=== PATIENT | female | born 1955 | race Caucasian/White ===

== ENCOUNTER 2025-04-30 09:00 | Outpatient (AMB) | payer MEDICARE, SELFPAY ==
--- NOTE | 2025-04-30 09:01 | A.OFFVIS_ITS ---
Intake Visit Reasons: F/U after injection 03/16/2025 Intake Note: Patient is a 69 year old female in office today for a follow up after right L3 and L4 transforaminal epidural 03/16/25 states that it didnt help much with the l3 and l4 left hip is starting to hurt as well Allergies alendronate sodium (Fosamax) Allergy (Unknown, Verified 04/30/25 09:05) Rash hydromorphone (Dilaudid) Allergy (Unknown, Verified 04/30/25 09:05) nausea and vomiting mold Allergy (Unknown, Uncoded 04/30/25 09:05) Rash sulfa Allergy (Unknown, Uncoded 04/30/25 09:05) Rash HPI Comments Details: History of Present Illness The patient is a 69 year old female presenting for a follow-up visit for chronic lower back pain and lumbar radiculitis. She has received minimally invasive treatments, including interlaminar and transforaminal injections, and is status post right L3 and L4 transforaminal injections on March 16, 2025, which she reports did not provide much help. Her pain is now primarily located on the left side, which she attributes to compensation from other musculoskeletal issues. The patient has a history of a right total hip replacement. She also reports needing a knee replacement, stating it is bone on bone, and has unhealed broken bones in her feet, leading to overcompensation and difficulty walking. Due to her lung illness, she is unable to go to the gym but uses a stationary bicycle at home. Her medication regimen includes long-term cyclobenzaprine and sporadic use of oxycodone for severe pain, which she states she uses rationally. She was recently prescribed baclofen 10 mg and has found some improvement taking it up to four times a day. She has been sober for 36 years and is very cautious with medication, especially opioids, due to a family history of an opioid overdose . The patient has a history of lung disease and wishes to avoid prednisone. She is scheduled for a Mohs procedure on her ear at the end of May and must remain steroid-free until then. She is due for lab work, including a liver function test, in May or June. Pain Description - Location: Chronic lower back pain and lumbar radiculitis, with current pain predominantly on the left side. - Quality: Severe enough to require sporadic use of oxycodone. - Exacerbating Factors: Walking and overcompensation from hip and knee issues. - Relieving Factors: Baclofen has provided some improvement, and using a walker or shopping cart helps for long distances. - Interference with Function: Pain and related issues with her hip, knee, and feet make walking difficult. Results - Procedures: Right L3 and L4 transforaminal injections were performed on March 16, 2025, which provided minimal relief. - Labs: She is due for lab work, including a liver function test, in May or June. [facility] Medical History (Updated 04/30/25 @ 17:15 by Deepak Corley DO) Post laminectomy syndrome Lumbar radiculitis Lumbar spinal stenosis Surgical History (Updated 04/25/25 @ 12:37 by Shahnaz Nicholson MA) History of rectal prolapse (Unknown) History of cataract surgery History of knee replacement H/O: hysterectomy History of cancer surgery History of hip replacement Social History (Updated 04/25/25 @ 12:37 by Shahnaz Nicholson MA) Alcohol intake: current Alcohol intake frequency: does not drink Patient Tobacco Use Status: Never used Tobacco Use of substances other than those prescribed or required for medical reasons: No Current occupational status: retired Review of Systems Narrative Review of Systems - Constitutional: Denies fever or chills. - Gastrointestinal: Denies any change in bowel habits. - Musculoskeletal: Reports chronic lower back pain, left-sided pain, knee pain described as bone on bone, and incompletely healed foot fractures. - Neurological: Reports lumbar radiculitis. - Respiratory: Reports a history of lung illness. - Skin: Reports she is scheduled for a Mohs procedure on her ear. Physical Exam Exam Exam: Physical Exam Patient appears to be in no acute distress. Appropriately conversant oriented. She ambulates without antalgia. Scoliosis present. Dural tension signs were negative. Neurological examination was nonfocal. Patient demonstrated no upper motor neuron signs. The SI provocative maneuvers were negative. Assessment & Plan Assessment & Plan (1) Lumbar spinal stenosis: Code(s): M48.061 - Spinal stenosis, lumbar region without neurogenic claudication Category: Medical Qualifiers: Neurogenic claudication status: with neurogenic claudication Qualified Code(s): M48.062 - Spinal stenosis, lumbar region with neurogenic claudication (2) Lumbar radiculitis: Code(s): M54.16 - Radiculopathy, lumbar region Category: Medical (3) Post laminectomy syndrome: Code(s): M96.1 - Postlaminectomy syndrome, not elsewhere classified Category: Medical Plan Pain Management - Affect: The patient is part of a recovery group at her [employer] and has been sober for 36 years. - Analgesia: The patient reports minimal relief from her last transforaminal injection. - She takes baclofen 10mg up to four times daily with some improvement and uses oxycodone 5mg sporadically, about twice a week, for severe pain. - Adverse Effects: The patient reports feeling like I was drunk when taking baclofen and Percocet together. - Activities of Daily Living: Walking is difficult, and she must take her time. - She uses a stationary bicycle for exercise but can no longer go to the gym due to a lung illness. - Her drives her everywhere. - Aberrant Drug Related Behaviors: There are no signs of aberrant behavior; she is described as being very rational with her medication. - She is very cautious with her opioid use due to 36 years of sobriety and the of her sister from an opioid overdose. Plan Patient was informed and verbally consented to the use of an ambient scribe for clinic note documentation during this visit. 1. Chronic Low Back Pain With Lumbar Radiculitis The patient reports her chronic low back pain and radiculitis had minimal response to the recent right L3-L4 transforaminal injections, with her pain now being predominantly on the left side. Given the lack of success with recent injections and the patient's desire to avoid steroids due to her lung condition and an upcoming Mohs procedure, further injections will be held. The plan is to continue conservative management. This includes continuing baclofen 10 mg, which she is now taking up to four times daily with some benefit. She will continue to use oxycodone sporadically for severe pain. Use of an assistive device like a walker for longer distances and continued exercise on her stationary bicycle were encouraged. The patient has sufficient refills of her medications. 2. Medication Management The patient demonstrates very responsible medication use, especially with her as-needed oxycodone, which she takes approximately twice a week. This is notable given her history of substance abuse, with 36 years of sobriety, and the loss of her sister to an opioid overdose. She reports significant drowsiness when combining baclofen and oxycodone, and she manages this by the administration of these medications. Routine labs, including a liver function test, will be checked in May or June, which is important for monitoring the effects of baclofen. I have confirmed that she has an adequate supply of her medications to last through the next couple of months. Discussion Notes I discussed the patient's follow-up for chronic low back pain and lumbar radiculitis. We reviewed her medications, and she will continue with baclofen 10 mg up to four times a day, which is providing some benefit. I commended her on her very cautious and rational use of oxycodone, noting her 36 years of sobriety. I recommended she use an assistive device like a walker for long distances and continue her stationary bicycle exercise. We acknowledged that the recent right L3/L4 transforaminal injections on March 16, 2025, did not provide significant relief and that her pain is now more pronounced on the left side, likely due to compensation from her other joint issues. We agreed to defer further steroid injections, as she has not had much success lately and also wishes to avoid steroids due to her lung disease and an upcoming Mohs procedure. I acknowledged her experience of drowsiness when combining baclofen and Percocet and confirmed her management approach is appropriate. I confirmed she has sufficient medication to last for several months, particularly over the upcoming holiday period when I will be away. Patient Instructions - Continue taking baclofen 10 mg up to four times a day as it appears to be helping your pain. - Continue using oxycodone (Percocet) only for severe pain, about twice a week, as you have been doing. - Be aware that taking baclofen and Percocet together may cause significant drowsiness. - Consider using a cane or walker, especially when you have to walk long distances, to help you walk more easily. - Continue with light exercise as you are able, such as using your stationary bicycle. - Do not get any more steroid injections for now. - Remember to get your blood work, including a liver function test, done in May or June. - You have enough medication to last for the next couple of months, so you do not need any refills at this time. Coding Level of Care Code Est Pt Level 4 (40036) Add On Problem Visit Only Diagnoses Spinal stenosis of lumbar region with neurogenic claudication M48.062 Neurogenic claudication status: with neurogenic claudication Lumbar radiculitis M54.16 Post laminectomy syndrome M96.1
== END 2025-04-30 09:41 | disposition home or self-care (01) ==
LOC: HO.HPHYS 09:00
PROVIDERS: PCP Physician Assistant Medical; Visit Provider Physical Medicine & Rehabilitation
DX: M48.062 Spinal stenosis, lumbar region with neurogenic claudication (principal); M54.16 Radiculopathy, lumbar region; M96.1 Postlaminectomy syndrome, not elsewhere classified
CPT/HCPCS: 99214; G2211

== ENCOUNTER → 2025-04-30 09:00 | Outpatient (BNVA) | payer MEDICARE, SELFPAY | PROVIDERS: PCP Physician Assistant Medical; Visit Provider Physical Medicine & Rehabilitation | DX: M48.062 Spinal stenosis, lumbar region with neurogenic claudication (principal); M54.16 Radiculopathy, lumbar region; M96.1 Postlaminectomy syndrome, not elsewhere classified | CPT/HCPCS: 99212 ==